=== PATIENT | male | born 1985 | race Caucasian/White ===

== ENCOUNTER 2022-07-24 11:30 | Emergency (ER) | payer SELFPAY ==
[~2022-07-24] VITALS: Ht 175.3 cm; Wt 99.8 kg
--- NOTE | 2022-07-24 11:31 | NUR ---
RECEIVED PT COMPLAINING OF LT FLANK PAIN X2 DAYS. STATES N/V X3. LT FLANK IS TENDER AND DESCRIBED SHARP PAIN 03/19. AT BEDSIDE FOR MSE
[2022-07-24] MEDS ORDERED: MORPHINE SULFATE 2 MG/1 ML DISP.SYRIN IV ONE (11:45)
[2022-07-24] MEDS ORDERED: ONDANSETRON 4 MG/2 ML VIAL IV ONE (11:45)
[2022-07-24] MEDS ORDERED: IV NORMAL SALINE 1000 ML BAG IV ONE (11:45)
[2022-07-24] MEDS ORDERED: ONDANSETRON 4 MG/2 ML VIAL ONE (11:52)
[2022-07-24] MEDS ORDERED: MORPHINE SULFATE 4 MG/1 ML DISP.SYRIN ONE ×2 (11:53→12:22)
[2022-07-24] MEDS ORDERED: MORPHINE SULFATE 4 MG/1 ML DISP.SYRIN IV ONE (12:15)
[2022-07-24 12:35] LABS: HEMATOCRIT 37.8 % (36.7-47.1); MEAN CORPUSCULAR HEMOGLOBIN 29.3 uug (23.8-33.4); MEAN CORPUSCULAR VOLUME 88.2 fL (73.0-96.2); PLATELET COUNT (AUTO) 195 K/uL (152-348)
[2022-07-24 12:42] LABS: *BLOOD, URINE NEGATIVE (NEGATIVE); *CLARITY,URINE CLEAR (CLEAR); *COLOR,URINE YELLOW (YELLOW); *KETONES,URINE TRACE (NEGATIVE); LEUKOCYTE ESTERASE ,URINE NEGATIVE (NEGATIVE); NITRITE, URINE NEGATIVE (NEGATIVE); PH,URINE 8.5 (5.0-8.0); UGLUCOSE NEGATIVE (NEGATIVE)
[2022-07-24 12:43] LABS: *BILIRUBIN,URIN 1+ (NEGATIVE)
[2022-07-24 12:44] LABS: CREATININE 1.1 mg/dL (0.6-1.3); POTASSIUM 4.4 mmol/L (3.5-5.1)
[2022-07-24 12:50] LABS: BILIRUBIN,DIRECT 0.1 mg/dL (0.0-0.2); BILIRUBIN,TOTAL 0.4 mg/dL (0.2-1.0); TOTAL PROTEIN, SERUM 7.1 g/dL (6.4-8.2)
[2022-07-24] MEDS ORDERED: KETOROLAC TROMETHAMINE 30 MG INJ ONE (13:27)
[2022-07-24] MEDS ORDERED: DICY10CA13 PO (13:28)
[2022-07-24] MEDS ORDERED: KETOROLAC TROMETHAMINE 30 MG INJ IVP ONE (13:30)
--- NOTE | 2022-07-24 14:28 | NUR ---
IV removed. Catheter intact and site benign. Pressure and 4x4 gauze applied to site. No bleeding noted.
--- NOTE | 2022-07-24 14:30 | NUR ---
Patient discharged to home in stable condition. Written and verbal after care instructions given. Patient verbalizes understanding of instructions. Stressed follow up or return to ER for worsening s/s.
[2022-07-24 14:31] VITALS: BP 118/78
== END 2022-07-24 14:31 | disposition home or self-care (01) ==
LOC: ER 11:30
DX: S39.91XA Unspecified injury of abdomen, initial encounter (principal); R10.32 Left lower quadrant pain; W19.XXXA Unspecified fall, initial encounter; Y92.89 Other specified places as the place of occurrence of the external cause; Z90.49 Acquired absence of other specified parts of digestive tract; R11.10 Vomiting, unspecified; M54.9 Dorsalgia, unspecified; R10.9 Unspecified abdominal pain; Z98.1 Arthrodesis status
CPT/HCPCS: 99284; 74176; 96374; 96375; 96361; 80076; 80048; 81003; 83690; 85025; 36415; J1885; J2405; J2270 ×2; J7040; A4663

== ENCOUNTER 2022-07-25 18:58 | Emergency (ER) | payer SELFPAY ==
[~2022-07-25] VITALS: Ht 170.2 cm; Wt 90.7 kg
[~2022-07-25 18:58] MED LIST: DICY10CA13 PO
[2022-07-25] MEDS ORDERED: ACETAMINOPHEN 325 MG TABLET PO ONE (20:30)
[2022-07-25] MEDS ORDERED: KETOROLAC TROMETHAMINE 15 MG INJ IM ONE (20:30)
[2022-07-25] MEDS ORDERED: KETOROLAC TROMETHAMINE 15 MG INJ ONE (20:48)
[2022-07-25] MEDS ORDERED: ACETAMINOPHEN 325 MG TABLET ONE (20:49)
--- NOTE | 2022-07-25 20:54 | NUR ---
PATIENT RESTING IN BED A/O X4 NO S/S OF ANY DISTRESS NOTED AT THIS TIME. PATIENT HAS BEEN INFORMED OF PLAN OF CARE, MEDICATED WITH TYLENOL PER ORDER, REFUSING TORADOL AT THIS TIME REQUESTING MORPHINE WILL INFORM MD.
--- NOTE | 2022-07-25 21:28 | NUR ---
MD WAS AT BEDSIDE TALKING WITH PATIENT.
--- NOTE | 2022-07-25 21:55 | NUR ---
PATIENT YELLING, ASKING FOR WATER, PROVIDED WATER, STATES THAT TORADOL MEDICATION DID NOT WORK, MD INFORMED AND NO NEW ORDERS.
--- NOTE | 2022-07-25 21:59 | NUR ---
Note maty in EDM - 07/25/22 at 2200 by JOLENE Patient does not wish to proceed with medical care recommended by Dr. Centeno. Patient given information related to possible complications, up to and including , which could occur as a result of leaving the hospital at this time. Patient verbalizes understanding of risks involved due to leaving against medical advice. Patient has signed AMA form.
--- NOTE | 2022-07-25 22:18 | NUR ---
md at bedside, [facility]CI GIVEN STATES UNDERSTANDING BUT REFUSES TO SIGN D/C PAPERWORK. PATIENT REMAINS STABLE FOR DISCHARGE.
== END 2022-07-26 01:12 | disposition home or self-care (01) ==
LOC: ER 18:58
DX: R10.9 Unspecified abdominal pain (principal); Z98.890 Other specified postprocedural states; F17.210 Nicotine dependence, cigarettes, uncomplicated; G89.29 Other chronic pain; Z87.828 Personal history of other (healed) physical injury and trauma; Z20.822 Contact with and (suspected) exposure to COVID-19
CPT/HCPCS: 99284; 71045; 87426; 87400; 96372; J1885; A4663